=== PATIENT | female | born 1965 | race Caucasian/White ===

== ENCOUNTER 2017-01-07 10:51 | Emergency (ER) | payer OTHER ==
[~2017-01-07] VITALS: Ht 157.5 cm; Wt 54.5 kg
[2017-01-07 10:54] VITALS: Ht 157.5 cm; Wt 54.5 kg
[2017-01-07] MEDS ORDERED: TRIA15CR55 TOP (11:23)
--- NOTE | 2017-01-07 11:35 | ERD ---
ER Documentation Chief Complaint Date/Time DATE: 01/07/17 TIME: 11:32 Chief Complaint Complains of a rash to the forearms since saturday HPI 51-year-old female presents to department with a history of rheumatoid arthritis presenting complaining of patches of itchy rash on her forearms legs and trunk since Saturday. Patient states that she has tried [id number] hydrocortisone and it goes away but then it comes right back. She denies any pain associated with it 0 out of 10. Denies fevers ROS All systems reviewed and are negative except as per history of present illness. Medications Home Meds Active Scripts Triamcinolone Acetonide (Triamcinolone Acetonide) 0.1% - 15 Gm Cream.gm., 1 APPLIC TOP BID for 14 Days, #1 TUB Prov:SUE ACOSTA PA-C 01/07/17 Allergies Allergies: Coded Allergies: No Known Allergy (Unverified , 01/07/17) PMhx/Soc History of Surgery: No Anesthesia Reaction: No Hx Neurological Disorder: No Hx Respiratory Disorders: No Hx Cardiac Disorders: No Hx Psychiatric Problems: No Hx Miscellaneous Medical Probl: No Hx Alcohol Use: No Hx Substance Use: No Hx Tobacco Use: No Smoking Status: Current some day smoker Physical Exam Vitals Vital Signs Date Time Temp Pulse Resp B/P Pulse Ox O2 Delivery O2 Flow Rate FiO2 01/07/17 10:54 96.9 65 20 135/85 99 Physical Exam Const: [] Head: Atraumatic Eyes: Normal Conjunctiva ENT: Normal External Ears, Nose and Mouth. Neck: Full range of motion..~ No meningismus. Resp: Clear to auscultation bilaterally Cardio: Regular rate and rhythm, no murmurs Abd: Soft, non tender, non distended. Normal bowel sounds Skin: Erythematous scaly patches throughout skin Back: No midline or flank tenderness Ext: No cyanosis, or edema Neur: Awake and alert Psych: Normal Mood and Affect Procedures/MDM This is a 51-year-old female presenting to the emergency department complaining of a rash which is likely atopic dermatitis, there was no evidence of cellulitis , scabies or anaphylaxis. Patient is ambulating well, speaking clearly and nontoxic appearing. She is appropriate to be discharged home with a prescription for times on cream and to follow-up with her primary care physician. I have discussed with her to return to the ER for any worsening signs or symptoms. She understands and agrees this plan Departure Diagnosis: Primary Impression: Dermatitis Condition: Stable Patient Instructions: Dermatitis, Non-Specific Additional Instructions: FOLLOW UP WITH YOUR PRIMARY CARE PHYSICIAN TOMORROW.Return to this facility if you are not improving as expected. Take all medicines as directed. Return to this facility if you are not improving as expected. SUE ACOSTA PA-C Jan 07, 2017 11:35
== END 2017-01-07 11:44 | disposition home or self-care (01) ==
LOC: FTE 10:51
DX: L30.9 Dermatitis, unspecified (principal); F17.210 Nicotine dependence, cigarettes, uncomplicated
CPT/HCPCS: 99283